=== PATIENT | male | born 1980 | race Caucasian/White ===

== ENCOUNTER 2019-05-26 11:14 | Emergency (ER) | payer BC ==
[2019-05-26] MEDS ORDERED: Ketorolac 30 MG/ML SDV IVPUSH ONE (11:17)
[2019-05-26] MEDS ORDERED: Morphine 2 MG/ML SYRINGE IVPUSH ONE ×2 (11:17→11:40)
[2019-05-26] MEDS ORDERED: Sodium Chloride 0.9% 1,000 ML IV ONE (11:18)
[2019-05-26] MEDS ORDERED: Ondansetron 4 MG/2 ML SDV IVPUSH ONE (11:25)
--- NOTE | 2019-05-26 11:25 | EDM.PDOC ---
ED HPI GENERAL MEDICAL PROBLEM - General Chief Complaint: Flank Pain Stated Complaint: FROM CT Time Seen by Provider: 05/26/19 11:30 Source of Information: Reports: Patient History Limitations: Reports: No Limitations - History of Present Illness INITIAL COMMENTS - FREE TEXT/NARRATIVE: sent in from [place] area was seen in clinic for hematuria ans sent fro CT scan , after scan developed severe RLQ abd pain radiating in to the groin and nausea with vomiting pain became very intense and pt could not go back to clinic CT report shows renal calculi in the R UVJ Onset: Gradual Onset Date: 05/25/19 Duration: Day(s): (2), Getting Worse Location: Reports: Abdomen (RLQ) Front/Back Body Image: 1 - right lower quadrant pain Quality: Reports: Ache Severity: Moderate Improves with: Reports: None Worsens with: Reports: None Associated Symptoms: Reports: Other (blood in urine) Lower Abdomen Pain Score (Numeric/FACES): 10 - Related Data Allergies Allergy/AdvReac Type Severity Reaction Status Date / Time No Known Allergies Allergy Verified 05/26/19 11:18 Home Meds: Home Meds Acetaminophen/HYDROcodone [[place] 325-5 MG] 1 tab PO Q6H PRN #6 tab 05/26/19 [Rx] Ketorolac [Toradol] 10 mg PO Q6H PRN #10 tab 05/26/19 [Rx] Tamsulosin HCl [Flomax] 0.4 mg PO DAILY #30 capsule 05/26/19 [Rx] predniSONE 20 mg PO WITHBREAKFAST #3 tab 05/26/19 [Rx] ED ROS GENERAL - Review of Systems Review Of Systems: See Below Constitutional: Reports: No Symptoms HEENT: Reports: No Symptoms Respiratory: Reports: No Symptoms Cardiovascular: Reports: No Symptoms Endocrine: Reports: No Symptoms GI/Abdominal: Reports: Nausea : Reports: Flank Pain, Hematuria, Pain Musculoskeletal: Reports: No Symptoms Skin: Reports: No Symptoms Neurological: Reports: No Symptoms Psychiatric: Reports: No Symptoms Hematologic/Lymphatic: Reports: No Symptoms ED EXAM, GI/ABD - Physical Exam Exam: See Below Exam Limited By: No Limitations General Appearance: Alert, WD/WN, Moderate Distress (in pain distress) Eyes: Bilateral: EOMI Ears: Normal External Exam Nose: Nasal Deformity Throat/Mouth: Normal Inspection Head: Atraumatic, Normocephalic Neck: Supple, Non-Tender Respiratory/Chest: Lungs Clear Cardiovascular: Regular Rate, Rhythm GI/Abdominal Exam: Normal Bowel Sounds, Soft, Tender (RLQ). No: Guarding, Rigid , Abnormal Bowel Sounds, Hernia (Male) Exam: No Hernia, Suprapubic Fullness. No: Testicular Tenderness (R) Back Exam: Normal Inspection, Full Range of Motion, CVA Tenderness (R) Extremities: Normal Inspection, Normal Range of Motion Neurological: Alert, Oriented, CN II-XII Intact, Normal Cognition Psychiatric: Normal Affect Skin Exam: Warm, Intact Lymphatic: No Adenopathy Course - Vital Signs Last Recorded V/S: Last Vital Signs Temp 37.1 C 05/26/19 13:58 Pulse 59 L 05/26/19 13:58 Resp 16 05/26/19 13:58 BP 133/84 05/26/19 13:58 Pulse Ox 97 05/26/19 13:58 - Orders/Labs/Meds Meds: Medications Discontinued Medications Generic Name Dose Route Start Last Admin Trade Name Freq PRN Reason Stop Dose Admin Sodium Chloride 1,000 mls @ 999 mls/hr 05/26/19 11:18 05/26/19 11:36 Normal Saline IV 05/26/19 12:18 999 mls/hr .BOLUS ONE Administration Prochlorperazine Edisylate 10 52 mls @ 150 mls/hr 05/26/19 11:47 05/26/19 11: 50 mg/ Sodium Chloride IV 05/26/19 12:07 150 mls/hr ONETIME ONE Administration Ketorolac Tromethamine 30 mg 05/26/19 11:17 05/26/19 11:36 Toradol IVPUSH 05/26/19 11:18 30 mg ONETIME ONE Administration Morphine Sulfate 2 mg 05/26/19 11:17 05/26/19 11:30 Morphine IVPUSH 05/26/19 11:18 2 mg ONETIME ONE Administration Morphine Sulfate 2 mg 05/26/19 11:40 05/26/19 11:47 Morphine IVPUSH 05/26/19 11:41 2 mg ONETIME ONE Administration Ondansetron HCl 4 mg 05/26/19 11:25 05/26/19 11:37 Zofran IVPUSH 05/26/19 11:26 4 mg ONETIME ONE Administration - Re-Assessments/Exams Free Text/Narrative Re-Assessment/Exam: 05/26/19 12:41 pt given IVF, toradol , Morphin 4mg , zofran and Compazine and became comfortable Departure - Departure Time of Disposition: 12:50 Disposition: Home, Self-Care 01 Clinical Impression: Renal calculus or stone, Acute right flank pain, Right renal stone, Ureteric colic - Discharge Information *PRESCRIPTION DRUG MONITORING PROGRAM REVIEWED*: Not Applicable *COPY OF PRESCRIPTION DRUG MONITORING REPORT IN PATIENT CUAUHTEMOC: Not Applicable Prescriptions: Acetaminophen/HYDROcodone [[place] 325-5 MG] 1 tab PO Q6H PRN #6 tab PRN Reason: Pain (Severe 7-10) Ketorolac [Toradol] 10 mg PO Q6H PRN #10 tab PRN Reason: Pain (Moderate 4-6) predniSONE 20 mg PO WITHBREAKFAST #3 tab Tamsulosin HCl [Flomax] 0.4 mg PO DAILY #30 capsule Instructions: Low-Purine Eating Plan, Kidney Stones, [id number], Flank Pain, Adult, [id number], Dietary Guidelines to Help Prevent Kidney Stones Referrals: Juan José Colón MD [Primary Care Provider] - Forms: ED Department Discharge Additional Instructions: 1) CONTINUE WITH INCREASED FLUID INTAKE 2) STRAIN URINE , TO GET KIDNEY STONE FOR ANALYSIS 3) MAKE APPOINTMENT TO FOLLOW UP WITH YOUR PCP Sepsis Event Note - Focused Exam Date Exam was Performed: 05/27/19 Time Exam was Performed: 02:33
[2019-05-26] MEDS ORDERED: Prochlorperazine 10 MG in Sodium Chloride 0.9% 50 ML IV ONE (11:47)
== END 2019-05-26 14:02 | disposition home or self-care (01) ==
LOC: FB.ED 11:14
DX: N20.2 Calculus of kidney with calculus of ureter (principal)
CPT/HCPCS: 96365; 96375; 99284; J0780; J1885; J2270; J2405; J7030; J7050